=== PATIENT | male | born 1985 | race Caucasian/White ===

== ENCOUNTER 2021-06-16 20:47 | Emergency (ER) | payer OTHER ==
[2021-06-16] MEDS ORDERED: ACETAMINOPHEN 500 MG TAB ONE (22:05)
--- NOTE | 2021-06-17 00:36 | ER ---
Nurse's Notes [facility] Name: Thai Clay Age: 36 yrs Sex: Male : 1985 Arrival Date: 06/16/2021 Time: 20:48 Bed DIS1 Private MD: Diagnosis: SARS-associated coronavirus as the cause of diseases classified elsewhere Presentation: 06/16 21:31 Chief complaint: Patient states: Cough, SOB, fever x 2 days. Coronavirus screen: Client kg denies travel out of the [place] in the last 14 days. At this time, unable to obtain information related to travel outside the [place] At this time, the client does not indicate any symptoms associated with coronavirus-19. Ebola Screen: Patient negative for fever greater than or equal to 101.5 degrees Fahrenheit, and additional compatible Ebola Virus Disease symptoms Patient denies exposure to infectious person. Patient denies travel to an Ebola-affected area in the 21 days before illness onset. No symptoms or risks identified at this time. Initial Sepsis Screen: Does the patient meet any 2 criteria? No. Patient's initial sepsis screen is negative. Does the patient have a suspected source of infection? No. Patient's initial sepsis screen is negative. Risk Assessment: Do you want to hurt yourself or someone else? Patient reports no desire to harm self or others. Onset of symptoms was June 14, 2021. 21:31 Method Of Arrival: Ambulatory kg 21:31 Acuity: TIERA 4 kg Triage Assessment: 21:33 General: Appears in no apparent distress. Behavior is calm, cooperative, appropriate kg for age, quiet. Pain: Complains of pain in Generalized. Respiratory: Reports shortness of breath cough that is productive, the patient has mild shortness of breath. Historical: - Allergies: 21:33 No Known Allergies; kg - Home Meds: 21:33 atorvastatin 10 mg oral tab 1 tab once daily [Active]; kg - PMHx: 21:33 Hypercholesterolemia; kg - PSHx: 21:33 Hernia repair; Vasectomy; kg - Immunization history:: Adult Immunizations up to date, Client reports having NOT received the Covid vaccine. - Social history:: Smoking status: Patient denies any tobacco usage or history of. Patient uses alcohol, occasionally. Screenin:36 Abuse screen: Denies threats or abuse. Denies injuries from another. Nutritional kg screening: No deficits noted. Tuberculosis screening: No symptoms or risk factors identified. Fall Risk None identified. Assessment: 06/17 01:14 Reassessment: pt seen by this RN on discharge pt is A\T\O x 4, resp unlabored, verbalized bb understanding of and agrees to plan of care discharge instructions given pt ambulated with steady gait to exit accompanied by family. Vital Signs: 06/16 21:31 BP 125 / 76; Pulse 102; Resp 20; Temp 102.7(TE); Pulse Ox 99% on R/A; Weight 79.38 kg kg (R); Height 5 ft. 8 in. (172.72 cm); Pain 4/10; 23:29 Temp 99.0(O); kg 06/17 01:10 BP 131 / 76; Pulse 87; Resp 18 S; Temp 99.1(O); Pulse Ox 100% on R/A; bb 06/16 21:31 Body Mass Index 26.61 (79.38 kg, 172.72 cm) kg ED Course: 06/16 20:48 Patient arrived in ED. as 21:33 Triage completed. kg 21:33 Arm band placed on right wrist. kg 21:36 Patient has correct armband on for positive identification. kg 22:43 XRAY Chest Pa And Lat (2 Views) In Process Unspecified. EDMS 23:39 Davdi Casiano PA is PHCP. cp 23:39 Shad Green MD is Attending Physician. cp 06/17 01:16 No provider procedures requiring assistance completed. Patient did not have IV access bb during this emergency room visit. Administered Medications: 06/16 21:45 Drug: Tylenol 1000 mg Route: PO; kg 23:30 Follow up: Response: No adverse reaction; Temperature is decreased kg 06/17 00:52 Drug: Tessalon Perle (benzonatate) 200 mg Route: PO; bb 01:16 Follow up: Response: No adverse reaction bb 00:52 Drug: predniSONE 60 mg Route: PO; bb 01:16 Follow up: Response: No adverse reaction bb Outcome: 00:36 Discharge ordered by . cp 01:16 Discharged to home ambulatory, with family. bb 01:16 Condition: stable 01:16 Discharge instructions given to patient, Instructed on discharge instructions, follow up and referral plans. medication usage, Demonstrated understanding of instructions, follow-up care, medications. 01:17 Patient left the ED. bb Signatures: Dispatcher [employer] EDNaomi Azul Brenda, RN RN bb David Casiano PA PA cp Graham, Kristen, RN RN kg
--- NOTE | 2021-06-17 00:36 | EDPHYS ---
Physician Documentation [facility] Name: Thai Clay Age: 36 yrs Sex: Male : 1985 Arrival Date: 06/16/2021 Time: 20:48 Bed DIS1 Private MD: ED Physician Shad Green HPI: 06/16 23:45 This 36 yrs old Male presents to ER via Ambulatory with complaints of Fever, cp Shortness Of Breath, Cough. 23:45 The patient has shortness of breath with light activity. Onset: The symptoms/episode cp began/occurred 2 day(s) ago. Associated signs and symptoms: Pertinent positives: non-productive cough, fever, Pertinent negatives: chest pain, diaphoresis, hemoptysis, vomiting. Severity of symptoms: in the emergency department the symptoms are unchanged despite home interventions. Historical: - Allergies: 21:33 No Known Allergies; kg - Home Meds: 21:33 atorvastatin 10 mg oral tab 1 tab once daily [Active]; kg - PMHx: 21:33 Hypercholesterolemia; kg - PSHx: 21:33 Hernia repair; Vasectomy; kg - Immunization history:: Adult Immunizations up to date, Client reports having NOT received the Covid vaccine. - Social history:: Smoking status: Patient denies any tobacco usage or history of. Patient uses alcohol, occasionally. ROS: 23:50 Constitutional: Positive for body aches, Negative for fever, poor PO intake. cp 23:50 Eyes: Negative for injury, pain, redness, and discharge. cp 23:50 ENT: Negative for ear pain, difficulty swallowing, difficulty handling secretions. 23:50 Neck: Negative for stiffness. 23:50 Cardiovascular: Negative for chest pain, palpitations. 23:50 Respiratory: Positive for cough, "sounds productive", shortness of breath, on exertion. Negative for wheezing. 23:50 Abdomen/GI: Negative for abdominal pain, nausea, vomiting, and diarrhea. 23:50 Neuro: Negative for altered mental status, headache, weakness. 23:50 All other systems are negative. Exam: 23:55 Constitutional: The patient appears in no acute distress, alert, awake, non-toxic, well cp developed, well nourished. 23:55 Head/Face: Normocephalic, atraumatic. cp 23:55 Eyes: Periorbital structures: appear normal, Conjunctiva: normal, no exudate, no injection, Sclera: no appreciated abnormality, Lids and lashes: appear normal, bilaterally. 23:55 ENT: External ear(s): are unremarkable, Nose: is normal, Mouth: Lips: moist, Oral mucosa: moist, Posterior pharynx: is normal, airway is patent, no erythema, no exudate. 23:55 Neck: ROM/movement: is normal, is supple, without pain, no range of motions limitations, no meningismus. 23:55 Chest/axilla: Inspection: normal, Palpation: is normal, no crepitus, no tenderness. 23:55 Cardiovascular: Rate: tachycardic, Rhythm: regular, Edema: is not appreciated, JVD: is not appreciated. 23:55 Respiratory: the patient does not display signs of respiratory distress, Respirations: normal, no use of accessory muscles, no retractions, labored breathing, is not present, Breath sounds: are clear throughout, decreased breath sounds, are not appreciated, stridor, is not appreciated, wheezing: is not appreciated. 23:55 Abdomen/GI: Exam negative for discomfort, distension, guarding, Inspection: abdomen appears normal. Vital Signs: 21:31 BP 125 / 76; Pulse 102; Resp 20; Temp 102.7(TE); Pulse Ox 99% on R/A; Weight 79.38 kg kg (R); Height 5 ft. 8 in. (172.72 cm); Pain 4/10; 23:29 Temp 99.0(O); kg 08/08 01:10 BP 131 / 76; Pulse 87; Resp 18 S; Temp 99.1(O); Pulse Ox 100% on R/A; bb 06/16 21:31 Body Mass Index 26.61 (79.38 kg, 172.72 cm) kg MDM: 00:23 Patient medically screened. cp 00:35 Data reviewed: vital signs, nurses notes, lab test result(s), radiologic studies, plain cp films. 00:35 Test interpretation: by ED physician or midlevel provider: plain radiologic studies. cp Counseling: I had a detailed discussion with the patient and/or guardian regarding: the historical points, exam findings, and any diagnostic results supporting the discharge/admit diagnosis, lab results, radiology results, to return to the emergency department if symptoms worsen or persist or if there are any questions or concerns that arise at home. ED course: Vital signs stable. Patient appears nontoxic no signs of respiratory distress. Will discharge to home for continued monitoring. Patient instructed to quarantine for 10 days from onset of symptoms.. 06/16 21:37 Order name: Flu kg 06/16 21:37 Order name: XRAY Chest Pa And Lat (2 Views) kg 06/16 23:40 Order name: SARS-COV-2 RT PCR EDMS Administered Medications: 06/16 21:45 Drug: Tylenol 1000 mg Route: PO; kg 23:30 Follow up: Response: No adverse reaction; Temperature is decreased kg 06/17 00:52 Drug: Tessalon Perle (benzonatate) 200 mg Route: PO; bb 01:16 Follow up: Response: No adverse reaction bb 00:52 Drug: predniSONE 60 mg Route: PO; bb 01:16 Follow up: Response: No adverse reaction bb Disposition Summary: 06/17/21 00:36 Discharge Ordered Location: Home cp Problem: new cp Symptoms: have improved cp Condition: Stable cp Diagnosis - SARS-associated coronavirus as the cause of diseases classified elsewhere cp Followup: cp - With: Private Physician - When: 2 - 3 days - Reason: Worsening of condition Discharge Instructions: - Discharge Summary Sheet cp - COVID-19 cp - Things to Know about the COVID-19 Pandemic - [facility] cp - 10 Things You Can Do to Manage Your COVID-19 Symptoms at Home - [facility] cp - COVID-19: Quarantine vs. Isolation - [facility] cp - Prevent the Spread of COVID-19 if You Are Sick - [facility] cp Forms: - Medication Reconciliation Form cp - Thank You Letter cp - Antibiotic Education cp - Work release form cp - Prescription Opioid Use cp Prescriptions: - albuterol sulfate 90 mcg/actuation Inhalation HFA aerosol inhaler - inhale 2 puff by INHALATION route every 4-6 hours; 1 Inhaler; Refills: 0, cp Product Selection Permitted - Tessalon Perles 100 mg Oral Capsule - take 2 capsule by ORAL route every 8 hours As needed; 30 capsule; Refills: 0, cp Product Selection Permitted - Zithromax Z-Matthew 250 mg Oral Tablet - take 1 tablet by ORAL route as directed for 5 days Day 1 - take two (2) tablets cp one time. Day 2, 3, 4 , 5 take one (1) tablet once daily.; 6 tablet; Refills: 0, Product Selection Permitted - Prednisone 20 mg Oral Tablet - take 2 tablets by ORAL route once daily for 5 days then take 1 tablet daily for cp 5 days; 15 tablet; Refills: 0, Product Selection Permitted Signatures: Dispatcher [employer] EDMS [place] Castellanos RN RN bb David Casiano PA PA cp Ayla Clay RN RN kg Corrections: (The following items were deleted from the chart) 06/16 22:48 21:38 CORONAVIRUS+[email or web address] ordered. EDMS EDMS
[2021-06-17] MEDS ORDERED: predniSONE 20 MG TAB ONE (01:16)
[2021-06-17] MEDS ORDERED: BENZONATATE 100 MG CAP PO ONE (01:16)
[2021-06-17 01:24] VITALS: BP 125/76; O2SAT 99
[2021-06-17 01:25] VITALS: TEMP 99
--- NOTE | 2021-06-17 08:39 | RAD REPORT ---
EXAM DESCRIPTION: RAD - Chest Pa And Lat (2 Views) - 06/16/2021 10:47 pm CLINICAL HISTORY: COUGH COMPARISON: Chest Pa And Lat (2 Views) dated 11/04/2016; CHEST PA AND LAT 2 VIEW dated 10/22/2013 FINDINGS: No evidence of edema or pneumonia. The heart size is within normal limits.No acute osseous abnormality. No significant pleural effusions or pneumothorax. IMPRESSION: No acute cardiopulmonary disease.
== END 2021-06-17 01:17 | disposition home or self-care (01) ==
LOC: ER 20:47
DX: U07.1 COVID-19 (principal); E78.00 Pure hypercholesterolemia, unspecified
CPT/HCPCS: 87804 ×2; 71046; 99283; U0003; J7512

== ENCOUNTER 2021-06-21 10:20 | Emergency (ER) | payer OTHER ==
[2021-06-21 11:24] LABS: Absolute Lymphocytes (CBC) 0.8 K/uL (0.7-4.9); Basophils % 0.2 % (0-1.3); Hematocrit 38.8 % (39.6-49.0); Lymphocytes % 23.4 % (15.3-44.8); MPV 6.8 fL (7.6-11.3); RBC Red Blood Cell Count 4.25 M/uL (4.33-5.43)
--- NOTE | 2021-06-21 11:28 | RAD REPORT ---
EXAM DESCRIPTION: RAD - Chest Single View - 06/21/2021 11:13 am CLINICAL HISTORY: CHEST PAIN COMPARISON: Chest Pa And Lat (2 Views) dated 06/16/2021; Chest Pa And Lat (2 Views) dated 11/04/2016; CHEST PA AND LAT 2 VIEW dated 10/22/2013 FINDINGS: No evidence of edema or pneumonia. The heart size is within normal limits.No acute osseous abnormality. No significant pleural effusions or pneumothorax. IMPRESSION: No acute cardiopulmonary disease.
[2021-06-21 11:32] LABS: Protime INR 1.02
[2021-06-21 12:06] LABS: ALT/SGPT 27 U/L (12-78); AST/SGOT 18 U/L (15-37); Albumin 3.6 g/dL (3.4-5.0); Alkaline Phosphatase 62 U/L (45-117); BUN Blood Urea Nitrogen 16 mg/dL (7-18); Bicarbonate 28 mmol/L (21-32); Bilirubin Direct < 0.1 mg/dL (0-0.2); Bilirubin Total 0.4 mg/dL (0.2-1.0); Ferritin 544.9 ng/mL (26-388); Glucose Level 99 mg/dL (74-106); Lipase 143 U/L (73-393); Protein, Total 7.2 g/dL (6.4-8.2); Sodium Level 140 mmol/L (136-145); Troponin (Emerg Dept Use Only) < 0.02 ng/mL (0.0-0.045)
[2021-06-21 12:10] LABS: Potassium 2.9 mmol/L (3.5-5.1)
--- NOTE | 2021-06-21 12:16 | EDPHYS ---
Physician Documentation [facility] Name: Thai Clay Age: 36 yrs Sex: Male : 1985 Arrival Date: 06/21/2021 Time: 10:22 Bed 11 Private MD: ED Physician Jeison Chandler HPI: 06/21 12:39 This 36 yrs old Male presents to ER via Ambulatory with complaints of Fever, kb Shortness Of Breath - covid+. 12:39 The patient or guardian reports cough, that is intermittent, described as moderate, kb difficulty breathing, flu symptoms, low-grade fever, myalgias, no appetite. Onset: The symptoms/episode began/occurred 7 day(s) ago. Severity of symptoms: At their worst the symptoms were moderate, in the emergency department the symptoms are unchanged. Modifying factors: The symptoms are alleviated by nothing, the symptoms are aggravated by nothing. Associated signs and symptoms: Pertinent positives: chest pain, fever, rhinorrhea. The patient has not experienced similar symptoms in the past. The patient has not recently seen a physician. Pt reports he has had fever, cough, congestion, malaise, fatigue, shortness of breath and chest pain for 7 days. Tested positive for Covid on Friday. Reports symptoms have gotten worse. reports pt's oxygen normally stays between 96-98%, but will drop to 89% momentarily intermittently. States she leaves the pulse ox on him all of the time. States pt has been sleeping a lot. . Historical: - Allergies: 10:54 No Known Allergies; jl7 - Home Meds: 10:54 atorvastatin 10 mg Oral tab 1 tab once daily [Active]; jl7 - PMHx: 10:54 Hypercholesterolemia; jl7 - PSHx: 10:54 hernia repair; Vasectomy; jl7 - Immunization history:: Adult Immunizations unknown, Client reports having NOT received the Covid vaccine. - Social history:: Smoking status: unknown. ROS: 12:45 Abdomen/GI: Negative for abdominal pain, nausea, vomiting, diarrhea, and constipation. kb 12:45 Constitutional: Positive for body aches, chills, fatigue, fever, malaise, poor PO intake. 12:45 ENT: Positive for sinus congestion. 12:45 Cardiovascular: Positive for chest pain, with cough. 12:45 Respiratory: Positive for cough, shortness of breath. 12:45 Neuro: Positive for headache. 12:45 All other systems are negative. Exam: 11:28 Constitutional: This is a well developed, well nourished patient who is awake, alert, kb and in no acute distress. Head/Face: Normocephalic, atraumatic. ENT: Moist Mucous membranes Cardiovascular: Regular rate and rhythm with a normal S1 and S2. No gallops, murmurs, or rubs. No pulse deficits. Respiratory: Respirations even and unlabored. No increased work of breathing, no retractions or nasal flaring. Abdomen/GI: Soft, non-tender. No distention Skin: Warm, dry with normal turgor. Normal color. MS/ Extremity: Pulses equal, no cyanosis. Neurovascular intact. Full, normal range of motion. Neuro: Awake and alert, GCS 15, oriented to person, place, time, and situation. Moves all extremities. Normal gait. Psych: Awake, alert, with orientation to person, place and time. Behavior, mood, and affect are within normal limits. 11:28 ECG was reviewed by the Attending Physician. Vital Signs: 10:49 BP 114 / 70; Pulse 75; Resp 17; Temp 98.4; Pulse Ox 97% ; Weight 81.65 kg; Height 5 ft. jl7 8 in. (172.72 cm); Pain 0/10; 12:24 BP 89 / 59; Pulse 70; Resp 17; Pulse Ox 97% on R/A; ss 12:30 BP 86 / 60; Pulse 70; Resp 18; Pulse Ox 98% on R/A; ss 12:50 BP 99 / 66; Pulse 72; Resp 17; Pulse Ox 97% on R/A; ss 13:15 BP 100 / 61; Pulse 70; ss 10:49 Body Mass Index 27.37 (81.65 kg, 172.72 cm) jl7 MDM: 10:57 Patient medically screened. kb 12:14 Data reviewed: vital signs, nurses notes. Data interpreted: Pulse oximetry: on room air kb is 97 %. Interpretation: normal. Counseling: I had a detailed discussion with the patient and/or guardian regarding: the historical points, exam findings, and any diagnostic results supporting the discharge/admit diagnosis, lab results, radiology results, the need for outpatient follow up, a family practitioner, to return to the emergency department if symptoms worsen or persist or if there are any questions or concerns that arise at home. 12:45 ED course: Pt maintained oxygen saturation of 97% when ambulating. . kb 06/21 10:58 Order name: BMP; Complete Time: 12:11 kb 06/21 10:58 Order name: C-Reactive Protein; Complete Time: 12:11 kb 06/21 10:58 Order name: CBC with Diff; Complete Time: 11:28 kb 06/21 10:58 Order name: D-Dimer; Complete Time: 11:38 kb 06/21 10:58 Order name: Ferritin; Complete Time: 12:11 kb 06/21 10:58 Order name: LFT's; Complete Time: 12:11 kb 06/21 10:58 Order name: Lipase; Complete Time: 12:11 kb 06/21 10:58 Order name: PT-INR; Complete Time: 11:38 kb 06/21 10:58 Order name: Ptt, Activated; Complete Time: 11:38 kb 06/21 10:58 Order name: Troponin (emerg Dept Use Only); Complete Time: 12:11 kb 06/21 10:58 Order name: CXR XRAY; Complete Time: 11:38 kb 06/21 10:58 Order name: EKG; Complete Time: 10:59 kb 06/21 10:58 Order name: Cardiac monitoring; Complete Time: 11:16 kb 06/21 10:58 Order name: Droplet/Contact Precautions; Complete Time: 11:16 kb 06/21 10:58 Order name: EKG - Nurse/Tech; Complete Time: 11:39 kb 06/21 10:58 Order name: IV Start; Complete Time: 11:16 kb 06/21 10:58 Order name: Labs collected and sent; Complete Time: 11:16 kb 06/21 10:58 Order name: O2 Per Protocol; Complete Time: 11:16 kb 06/21 10:58 Order name: O2 Sat Monitoring; Complete Time: 11:16 kb EC:28 Rate is 74 beats/min. Rhythm is regular. QRS [place] is Normal. CT interval is normal at kb 120 msec. QRS interval is normal at 98 msec. QT interval is normal at 390 msec. Administered Medications: 12:29 Drug: Potassium Chloride 40 mEq Route: PO; ss 13:25 Follow up: Response: No adverse reaction ss 12:30 Drug: NS 0.9% 1000 ml Route: IV; Rate: 1 bolus; Site: right antecubital; ss 13:24 Follow up: IV Status: Completed infusion; IV Intake: 1000ml ss Disposition: 17:08 Co-signature as Attending Physician, Jeison Chandler MD I agree with the assessment and kdr plan of care. Disposition Summary: 06/21/21 12:15 Discharge Ordered Location: Home kb Condition: Stable kb Diagnosis - Coronavirus infection, unspecified kb Followup: kb - With: Emergency Department - When: As needed - Reason: Worsening of condition Followup: kb - With: Private Physician - When: 2 - 3 days - Reason: Recheck today's complaints, Continuance of care, Re-evaluation by your physician Discharge Instructions: - Discharge Summary Sheet kb - Viral Respiratory Infection, [id number] kb - COVID-19 kb Forms: - Medication Reconciliation Form kb - Thank You Letter kb - Antibiotic Education kb - Prescription Opioid Use kb Signatures: Dispatcher [employer] EDMS Camila Caicedo, TROUBLE DISPATCHER-C TROUBLE DISPATCHER-Jeison Centeno MD MD [facility] [address] Lois Quiles, RN RN ss Андрей Mendez, RN RN jl7
--- NOTE | 2021-06-21 12:16 | ER ---
Nurse's Notes [facility] Name: Thai Clay Age: 36 yrs Sex: Male : 1985 Arrival Date: 06/21/2021 Time: 10:22 Bed 11 Private MD: Diagnosis: Coronavirus infection, unspecified Presentation: 06/21 10:49 Chief complaint: Spouse and/or significant other states: He tested positive on Friday jl7 and his O2 has gone down to 89 a few times and today he seems hard to keep awake, pt reports intermittent, non-radiating, midsternal chest pain, "tight" feeling, since this morning, no chest pain right now. Coronavirus screen: Client denies travel out of the [place] in the last 14 days. cough unrelated to allergies, fatigue, fever. Ebola Screen: No symptoms or risks identified at this time. Initial Sepsis Screen: Does the patient meet any 2 criteria? No. Patient's initial sepsis screen is negative. Does the patient have a suspected source of infection? No. Patient's initial sepsis screen is negative. Risk Assessment: Do you want to hurt yourself or someone else? Patient reports no desire to harm self or others. Onset of symptoms was June 14, 2021. 10:49 Method Of Arrival: Ambulatory 7 10:49 Acuity: TIERA 3 jl7 Triage Assessment: 10:54 General: Appears in no apparent distress. uncomfortable, Behavior is calm, cooperative, jl7 appropriate for age. Pain: Denies pain. Respiratory: Reports cough that is Onset: The symptoms/episode began/occurred gradually, the patient has mild shortness of breath. Historical: - Allergies: 10:54 No Known Allergies; jl7 - Home Meds: 10:54 atorvastatin 10 mg Oral tab 1 tab once daily [Active]; jl7 - PMHx: 10:54 Hypercholesterolemia; jl7 - PSHx: 10:54 hernia repair; Vasectomy; jl7 - Immunization history:: Adult Immunizations unknown, Client reports having NOT received the Covid vaccine. - Social history:: Smoking status: unknown. Screenin:15 Abuse screen: Denies threats or abuse. Denies injuries from another. Nutritional ss screening: No deficits noted. Tuberculosis screening: Never had TB. Fall Risk None identified. Assessment: 11:15 General: Appears uncomfortable, Behavior is calm, cooperative, Reports feeling ill for ss 2-3 days, fatigue for 2-3 days, Worse today. Pain: Complains of pain in chest Pain currently is 1 out of 10 on a pain scale. Quality of pain is described as tender, Pain began Today Is continuous. Neuro: Level of Consciousness is awake, alert, obeys commands, Oriented to person, place, time, situation. Cardiovascular: Capillary refill < 3 seconds is brisk in bilateral fingers Rhythm is regular. Respiratory: Reports shortness of breath on exertion cough that is dry, persistent Airway is patent Respiratory effort is even, unlabored, Respiratory pattern is regular, symmetrical. GI: No signs and/or symptoms were reported involving the gastrointestinal system. EENT: Nares are clear. Musculoskeletal: Circulation, motion, and sensation intact. Range of motion: intact in all extremities, Swelling absent. 11:45 Reassessment: Patient appears in no apparent distress at this time. Patient and/or ss family updated on plan of care and expected duration. Pain level reassessed. Patient is alert, oriented x 3, equal unlabored respirations, skin warm/dry/pink. 12:31 Reassessment: Pt up for discharge. After checking repeat VS, it was found that BP was ss 86-60. SMILEY Aguila notified. NS 1000 mL administered now. Awaiting for IV fluids to finish infusing prior to discharge. Will repeat VS. Warm blanket given for comfort. Respiratory: Airway is patent Respiratory effort is even, unlabored, Respiratory pattern is regular, symmetrical. Derm: Skin is pink, warm \\T\\ dry. normal. 12:51 Reassessment: Patient appears in no apparent distress at this time. Patient and/or ss family updated on plan of care and expected duration. Pain level reassessed. Patient is alert, oriented x 3, equal unlabored respirations, skin warm/dry/pink. Pt has drank approximately 240 mL of water and has eaten crackers that were provided. Vital Signs: 10:49 BP 114 / 70; Pulse 75; Resp 17; Temp 98.4; Pulse Ox 97% ; Weight 81.65 kg; Height 5 ft. jl7 8 in. (172.72 cm); Pain 0/10; 12:24 BP 89 / 59; Pulse 70; Resp 17; Pulse Ox 97% on R/A; ss 12:30 BP 86 / 60; Pulse 70; Resp 18; Pulse Ox 98% on R/A; ss 12:50 BP 99 / 66; Pulse 72; Resp 17; Pulse Ox 97% on R/A; ss 13:15 BP 100 / 61; Pulse 70; ss 10:49 Body Mass Index 27.37 (81.65 kg, 172.72 cm) jl7 ED Course: 10:22 Patient arrived in ED. as 10:27 Camila Caicedo FNP-C is [facility]. kb 10:27 Jeison Chandler MD is Attending Physician. kb 10:53 Triage completed. jl7 10:54 Arm band placed on right wrist. jl7 11:13 CXR XRAY In Process Unspecified. EDMS 11:15 Lois Quiles, JEREMIAH is Primary Nurse. ss 11:15 Inserted saline lock: 20 gauge in right antecubital area, using aseptic technique. ss Blood collected. Patient maintains SpO2 saturation greater than 95% on room air. 12:50 No provider procedures requiring assistance completed. ss 13:23 IV discontinued, intact, bleeding controlled, No redness/swelling at site. Pressure ss dressing applied. 19:48 Patient has correct armband on for positive identification. Bed in low position. Call ss light in reach. Side rails up X 1. Administered Medications: 12:29 Drug: Potassium Chloride 40 mEq Route: PO; ss 13:25 Follow up: Response: No adverse reaction ss 12:30 Drug: NS 0.9% 1000 ml Route: IV; Rate: 1 bolus; Site: right antecubital; ss 13:24 Follow up: IV Status: Completed infusion; IV Intake: 1000ml ss Intake: 13:24 IV: 1000ml; Total: 1000ml. ss Outcome: 12:15 Discharge ordered by . kb 13:23 Discharged to home ambulatory. ss 13:23 Condition: good 13:23 Discharge instructions given to patient, family, Instructed on discharge instructions, follow up and referral plans. Demonstrated understanding of instructions, follow-up care. 13:24 Patient left the ED. ss Signatures: Dispatcher [employer] EDMS Camila Caicedo FNP-C FNP-Ckb Martinez, Amelia as Lois Quiles, RN RN ss Андрей Mendez RN RN jl7 Corrections: (The following items were deleted from the chart) 12:30 12:30 BP 89 / 59; Pulse 70bpm; Resp 17bpm; Pulse Ox 97% RA; ss ss
[2021-06-21] MEDS ORDERED: POTASSIUM CL SA 10 MEQ TAB PO ONE (12:43)
[2021-06-21] MEDS ORDERED: NA CHLORIDE 0.9% 1,000 ML ONE (12:50)
[2021-06-21 13:29] VITALS: TEMP 98.4
[2021-06-21 13:35] VITALS: BP 99/66; O2SAT 97
== END 2021-06-21 13:24 | disposition home or self-care (01) ==
LOC: ER 10:20
DX: U07.1 COVID-19 (principal); E78.00 Pure hypercholesterolemia, unspecified
CPT/HCPCS: 93005; 85025; 80048; 36415; 85610; 85379; 80076; 85730; 84484; 82728; 83690; 86140; 71045; 96360; 99284; J7030

== ENCOUNTER 2021-06-28 10:53 | Emergency (ER) | payer OTHER ==
[2021-06-28 12:31] LABS: Basophils % 0.5 % (0-1.3); Lymphocytes % 28.6 % (15.3-44.8); MPV 6.1 fL (7.6-11.3); RBC Red Blood Cell Count 4.52 M/uL (4.33-5.43)
--- NOTE | 2021-06-28 12:40 | RAD REPORT ---
EXAM DESCRIPTION: CT - Chest For Pe Angio - 06/28/2021 12:29 pm CLINICAL HISTORY: Chest pain. Cough;Dyspnea COMPARISON: Abdomen Pelvis W Contrast dated 06/28/2021 TECHNIQUE: CT angiogram of the pulmonary arteries was performed with MIP. All CT scans are performed using dose optimization technique as appropriate and may include automated exposure control or mA/KV adjustment according to patient size. FINDINGS: No evidence of pulmonary thromboembolism. No acute aortic finding demonstrated. Moderate opacity is present peripherally in both lower lobes and to a lesser extent posterior right u pper lobe. No significant pericardial or pleural fluid. No concerning bony finding. IMPRESSION: No evidence of pulmonary thromboembolism. Moderate opacities in both lower lobes are noted as well as posterior right upper lobe likely related to COVID infection
[2021-06-28 12:49] LABS: Blood Morphology Comment NOT SEEN (NOT SEEN); Platelet Estimate ADEQ; White Blood Cell Scan OK (OK)
--- NOTE | 2021-06-28 12:52 | RAD REPORT ---
EXAM DESCRIPTION: CT - Abdomen Pelvis W Contrast - 06/28/2021 12:30 pm CLINICAL HISTORY: Abdominal pain COMPARISON: none. TECHNIQUE: Computed axial tomography of the abdomen pelvis was obtained. 100 cc Isovue-300 was admin istered intravenously. Oral contrast was not requested which limits evaluation of bowel. All CT scans are performed using dose optimization technique as appropriate and may include automated exposure control or mA/KV adjustment according to patient size. FINDINGS: Moderate ground-glass opacities right lung base. Mild ground-glass opacities left lung bas e. The liver, pancreas, left adrenal kidneys unremarkable. Splenic granulomata. 16 millimeter right adrenal nodule. There is no evidence of diverticulitis. Normal appendix. Postsurgical changes right inguinal hernia r epair IMPRESSION: Mild to moderate ground-glass opacities within the lung bases can seen with Covid pneumo mackenzie 16 millimeter right adrenal nodule is nonspecific. It may represent an adenoma. This could be confirm ed with MRI
[2021-06-28 13:02] LABS: ALT/SGPT 46 U/L (12-78); AST/SGOT 22 U/L (15-37); Albumin 3.5 g/dL (3.4-5.0); Alkaline Phosphatase 86 U/L (45-117); BUN Blood Urea Nitrogen 8 mg/dL (7-18); Bicarbonate 31 mmol/L (21-32); Bilirubin Direct 0.1 mg/dL (0-0.2); Bilirubin Total 0.4 mg/dL (0.2-1.0); Glucose Level 77 mg/dL (74-106); Lipase 165 U/L (73-393); Potassium 3.8 mmol/L (3.5-5.1); Protein, Total 7.6 g/dL (6.4-8.2); Sodium Level 142 mmol/L (136-145)
--- NOTE | 2021-06-28 13:07 | RAD REPORT ---
EXAM DESCRIPTION: RAD - Chest Pa And Lat (2 Views) - 06/28/2021 12:58 pm CLINICAL HISTORY: COVID +;Cough Chest pain. COMPARISON: Chest Single View dated 06/21/2021; Chest Pa And Lat (2 Views) dated 06/16/2021; Chest Pa A nd Lat (2 Views) dated 11/04/2016; CHEST PA AND LAT 2 VIEW dated 10/22/2013 FINDINGS: Mild opacities are present in both lung bases, greatest in the right lower lobe posteriorl y, likely representing viral infection. The heart is normal in size. No displaced fractures.
--- NOTE | 2021-06-28 13:22 | ER ---
Nurse's Notes [facility] Name: Thai Clay Age: 36 yrs Sex: Male : 1985 Arrival Date: 06/28/2021 Time: 10:57 Bed DX2 Private MD: Diagnosis: SARS-associated coronavirus as the cause of diseases classified elsewhere;Dyspnea, unspecified Presentation: 06/28 11:41 Chief complaint: Patient states: short of breath. Coronavirus screen: Client presents da3 with at least one sign or symptom that may indicate coronavirus-19. Ebola Screen: No symptoms or risks identified at this time. Risk Assessment: Do you want to hurt yourself or someone else? Patient reports no desire to harm self or others. 11:41 Method Of Arrival: Ambulatory da3 11:41 Acuity: TIERA 3 da3 Triage Assessment: 11:43 General: Appears uncomfortable. da3 - Immunization history:: Client reports having NOT received the Covid vaccine. - Family history:: not pertinent. - Hospitalizations: : No recent hospitalization is reported. Vital Signs: 11:44 BP 118 / 80; Pulse 93; Resp 22; Temp 98.7; Pulse Ox 98% on R/A; da3 ED Course: 10:57 Patient arrived in ED. mr 11:43 Triage completed. da3 11:48 Yoandy Rivera MD is Attending Physician. rn 12:29 CT Chest For PE Angio In Process Unspecified. EDMS 12:30 CT Abd/Pelvis - IV Contrast Only In Process Unspecified. EDMS 12:54 XRAY Chest Pa And Lat (2 Views) In Process Unspecified. EDMS 13:31 IV discontinued, intact, bleeding controlled, No redness/swelling at site. ld1 Administered Medications: No medications were administered Outcome: 13:22 Discharge ordered by . rn 13:30 Discharged to home ambulatory. ld1 13:30 Condition: stable 13:30 Discharge instructions given to patient, Instructed on discharge instructions, follow up and referral plans. Demonstrated understanding of instructions, follow-up care. 13:31 Patient left the ED. ld1 Signatures: Dispatcher [employer] EDMS GuerrieraSharon mr Yoandy Rivera MD MD rn Dibbern, Lauren, RN RN ld1 Rogerio Nuñez RN RN da3
--- NOTE | 2021-06-28 13:23 | EDPHYS ---
Physician Documentation [facility] Name: Thai Clay Age: 36 yrs Sex: Male : 1985 Arrival Date: 06/28/2021 Time: 10:57 Bed DX2 Private MD: ED Physician Yoandy Rivera HPI: 06/28 12:15 This 36 yrs old Male presents to ER via Ambulatory with complaints of COVID+, rn weakness, breathing Difficulty. 12:15 The patient has shortness of breath at rest, with light activity. Onset: The rn symptoms/episode began/occurred 2 week(s) ago. Duration: The symptoms are intermittent. The patient's shortness of breath is aggravated by coughing, exertion, is alleviated by nothing. Associated signs and symptoms: Pertinent positives: non-productive cough, Pertinent negatives: fever, hemoptysis. Severity of symptoms: At their worst the symptoms were moderate in the emergency department the symptoms have improved. The patient has not experienced similar symptoms in the past. The patient has not recently seen a physician. Patient reports diagnosed with Covid 2 weeks ago, still having trouble breathing, generalized fatigue and weakness, bad coughing fits. Seen here twice already during illness and discharged with normal chest x-ray. PCP sends back today for CT chest and further evaluation.. - Immunization history:: Client reports having NOT received the Covid vaccine. - Family history:: not pertinent. - Hospitalizations: : No recent hospitalization is reported. ROS: 12:15 Constitutional: Positive weight loss Eyes: Negative for injury, pain, redness, and architect intern, ENT: Negative for injury, pain, and discharge, Neck: Negative for injury, pain, and swelling, Cardiovascular: Negative for chest pain, palpitations, and edema, Respiratory: Positive cough and shortness of breath Abdomen/GI: Positive for abdominal pain/vomiting/diarrhea Back: Negative for injury and pain, : Negative for injury, bleeding, discharge, and swelling, MS/Extremity: Negative for injury and deformity, Skin: Negative for injury, rash, and discoloration, Neuro: Positive for headache and generalized weakness, negative for seizure 12:15 All other systems are negative. Exam: 12:15 Constitutional: This is a well developed, well nourished patient who is awake, alert, rn sitting upright and ambulatory without assistance Head/Face: Normocephalic, atraumatic. Eyes: Periorbital areas with no swelling, redness, or edema. ENT: Dry mucous membranes Neck: Trachea midline, no masses palpated, and no cervical lymphadenopathy. Supple, full range of motion without nuchal rigidity, or vertebral point tenderness. No Meningismus. Cardiovascular: Regular rate and rhythm. No pulse deficits. Respiratory: Mild tachypnea, no retractions Abdomen/GI: Soft, no focal tenderness, no masses Skin: Warm, dry MS/ Extremity: Pulses equal, no cyanosis. Neuro: Awake and alert, GCS 15 13:27 ECG was reviewed by the Attending Physician. rn Vital Signs: 11:44 BP 118 / 80; Pulse 93; Resp 22; Temp 98.7; Pulse Ox 98% on R/A; da3 MDM: 11:48 Patient medically screened. rn 13:18 Differential diagnosis: Bronchitis pneumonia, Psychogenic pulmonary edema, Pulmonary rn Embolism Covid. Data reviewed: vital signs, nurses notes, lab test result(s), EKG, radiologic studies, and as a result, I will discharge patient. Data interpreted: Pulse oximetry: on room air is 98 %. Interpretation: normal. Counseling: I had a detailed discussion with the patient and/or guardian regarding: the historical points, exam findings, and any diagnostic results supporting the discharge/admit diagnosis, lab results, radiology results, the need for outpatient follow up, to return to the emergency department if symptoms worsen or persist or if there are any questions or concerns that arise at home. Special discussion: I discussed with the patient/guardian in detail that at this point there is no indication for admission to the hospital. It is understood, however, that if the symptoms persist or worsen the patient needs to return immediately for re-evaluation. ED course: CT chest negative for pulmonary embolism, still with mild to moderate pulmonary opacities consistent with Covid. Already past the acute infectious phase. Will DC home with recommendations for N-acetylcysteine and return precautions.. 06/28 11:55 Order name: CBC with Diff; Complete Time: 13:13 rn 06/28 11:55 Order name: Basic Metabolic Panel; Complete Time: 13: rn 06/28 11:32 Order name: XRAY Chest Pa And Lat (2 Views); Complete Time: : rn 06/28 11:55 Order name: LFT's; Complete Time: 13: rn 06/28 11:55 Order name: Lipase; Complete Time: 13:13 rn 06/28 12:49 Order name: CBC Smear Scan; Complete Time: 13:13 EDOR 06/28 11:55 Order name: IV Start rn 06/28 11:55 Order name: CT Chest For PE Angio; Complete Time: 13:13 rn 06/28 11:55 Order name: CT Abd/Pelvis - IV Contrast Only; Complete Time: 13:13 rn 06/28 11:55 Order name: EKG; Complete Time: 11:56 rn 06/28 11:55 Order name: EKG - Nurse/Tech rn EC: Rate is 80 beats/min. Rhythm is regular. QRS [place] is Normal. MT interval is normal. QRS rn interval is normal. QT interval is normal. No Q waves. T waves are Normal. No ST changes noted. Clinical impression: Normal ECG. Interpreted by me. Reviewed by me. Administered Medications: No medications were administered Disposition Summary: 06/28/21 13:22 Discharge Ordered Location: Home rn Problem: an ongoing problem rn Symptoms: have improved rn Condition: Stable rn Diagnosis - SARS-associated coronavirus as the cause of diseases classified elsewhere rn - Dyspnea, unspecified rn Followup: rn - With: Private Physician - When: As needed - Reason: Recheck today's complaints, Re-evaluation by your physician Discharge Instructions: - Discharge Summary Sheet rn - Shortness of Breath, Adult rn - COVID-19 rn - 10 Things You Can Do to Manage Your COVID-19 Symptoms at Home - [facility] rn Forms: - Medication Reconciliation Form rn - Thank You Letter rn - Antibiotic pattern hanger - Prescription Opioid Use rn Signatures: Dispatcher [employer] Yoandy Tucker MD MD rn Allan, David RN RN da3
[2021-06-28 13:37] VITALS: BP 118/80; TEMP 98.7; O2SAT 98
== END 2021-06-28 13:31 | disposition home or self-care (01) ==
LOC: ER 10:53
DX: U07.1 COVID-19 (principal)
CPT/HCPCS: 93005; 85025; 80048; 36415; 80076; 83690; 71275; 74177; 71046; 99283; Q9967

== ENCOUNTER 2022-08-31 00:48 | Emergency (ER) | payer OTHER ==
[2022-08-31 01:42] LABS: Absolute Lymphocytes (CBC) 1.9 K/uL (0.7-4.9); Hematocrit 45.6 % (39.6-49.0); Lymphocytes % 27.8 % (15.3-44.8); MCV 91.8 fL (80-100); MPV 6.9 fL (7.6-11.3); RBC Red Blood Cell Count 4.97 M/uL (4.33-5.43)
[2022-08-31 01:53] LABS: Potassium 3.7 mmol/L (3.5-5.1)
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
[2022-08-31 03:14] VITALS: TEMP 98.3
[2022-08-31 03:20] VITALS: O2SAT 98
[2022-08-31 03:26] VITALS: BP 123/87
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
== END 2022-08-31 02:42 | disposition home or self-care (01) ==
LOC: ER 00:48
DX: S02.40CA Maxillary fracture, right side, initial encounter for closed fracture (principal); S00.03XA Contusion of scalp, initial encounter; Y09 Assault by unspecified means; E78.00 Pure hypercholesterolemia, unspecified
CPT/HCPCS: 36415; 70450; 70486; 72125; 76377; 80048; 85025; 86850; 86900; 86901; 99284